=== PATIENT | male | born 1975 | race African-American/Black ===

== ENCOUNTER 2019-01-18 12:21 | Inpatient (IN) | payer OTHER ==
[2019-01-18 15:01] VITALS: BMI 27.7
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
[2019-01-18] MEDS ORDERED: hydrOXYzine PAMOATE 25 MG CAPSULE (FP) PO PRN (16:56)
[2019-01-18] MEDS ORDERED: ACETAMINOPHEN 325 MG TABLET (FP) PO PRN (16:56)
[2019-01-18] MEDS ORDERED: MENTHOL/PHENOL 1 EACH UD MM PRN (16:56)
[2019-01-18] MEDS ORDERED: IBUPROFEN 400 MG TABLET (FP) PO PRN (16:56)
[2019-01-18] MEDS ORDERED: P-EPHED 60MG/TRIPROLIDI 2.5MG TABLET PO PRN (16:56)
[2019-01-18] MEDS ORDERED: guaiFENesin 200 MG/10 ML 10 ML UNIT-DOSE CUPS PO PRN (16:56)
[2019-01-18] MEDS ORDERED: MAG HYDROX/AL HYDROX/SIMETH 30 ML UNIT-DOSE CUP PO PRN (16:56)
[2019-01-18] MEDS ORDERED: METHADONE HCL 10 MG TABLET PO ONE (17:37)
[2019-01-18] MEDS ORDERED: METHADONE 80 MG, METHADONE 20 MG PO ONE (19:00)
[2019-01-18] MEDS ORDERED: METHADONE HCL 10 MG TABLET ONE (19:17)
[2019-01-18] MEDS ORDERED: METHADONE HCL 40 MG DISPERSABLE TABLET ONE (19:17)
[2019-01-18] MEDS ORDERED: MELATONIN 5 MG TABLETS PO PRN (22:00)
[2019-01-18] MEDS: THIAMINE HCL 100 MG TABLET (FP) PO SCH (22:01)
[2019-01-19] MEDS ORDERED: METHADONE HCL 10 MG TABLET ONE (04:08)
[2019-01-19] MEDS ORDERED: METHADONE HCL 40 MG DISPERSABLE TABLET ONE (04:08)
[2019-01-19] MEDS ORDERED: METHADONE HCL 40 MG DISPERSABLE TABLET PO SCH (06:00)
[2019-01-19] MEDS: METHADONE 160 MG, METHADONE 10 MG PO SCH (06:36)
[2019-01-19 10:29] LABS: EPI CELLS 2.8 /HPF (0-5/HPF); HYALINE CASTS 14 /lpf (0-8); PH,URINE 5.5 (5.0-8.0); URINE APPEARANCE CLEAR; URINE BACTERIA 9.6 /hpf (NEGATIVE); URINE BILIRUBIN NEGATIVE (NEGATIVE); URINE COLOR YELLOW; URINE GLUCOSE (UA) NEGATIVE (NEGATIVE); URINE KETONE NEGATIVE (NEGATIVE); URINE LEUK ESTERASE TRACE (NEGATIVE); URINE NITRITE NEGATIVE (NEGATIVE); URINE PROTEIN NEGATIVE (NEGATIVE); URINE RBC 1 /hpf (0-4); URINE UROBILINOGEN 0.2 mg/dL (0.2-1.0); URINE WBC 5 /hpf (0-5)
[2019-01-19] MEDS: PRENATAL VITAMINS W/ FOLIC ACID TABLET (FP) PO SCH (10:39)
[2019-01-19 14:56] LABS: HEMATOCRIT 38.1 % (35.4-49); HEMOGLOBIN 12.6 GM/dL (11.7-16.9); MCH 31.9 pg (25.7-33.7); MCHC 33.1 g/dl (32.0-35.9); MEAN CELL VOLUME 96.5 fl (80-96); MEAN PLT VOLUME 9.1 fl (7.5-11.1); PLATELET COUNT 194 K/MM3 (134-434); RBC 3.95 M/mm3 (4.00-5.60); RDW 14.8 % (11.9-15.9); WHITE BLOOD COUNT 3.4 K/mm3 (4.0-10.0)
[2019-01-19 15:17] LABS: ALBUMIN 4.2 g/dl (3.4-5.0); BILIRUBIN,TOTAL 0.6 mg/dL (0.2-1); BLOOD UREA NITROGEN 7.5 mg/dL (7-18); CALCIUM 9.3 mg/dL (8.5-10.1); CREATININE 1.1 mg/dL (0.55-1.3); POTASSIUM 4.2 mmol/L (3.5-5.1); TOT PROT 7.1 g/dl (6.4-8.2)
[2019-01-19] MEDS: THIAMINE HCL 100 MG TABLET (FP) PO SCH (23:15)
[2019-01-20] MEDS ORDERED: METHADONE HCL 10 MG TABLET ONE (03:36)
[2019-01-20] MEDS ORDERED: METHADONE HCL 40 MG DISPERSABLE TABLET ONE (03:37)
[2019-01-20] MEDS: METHADONE 160 MG, METHADONE 10 MG PO SCH (06:06)
[2019-01-20] MEDS ORDERED: PT OWN MED DRAWER 7, Y5N ONE ×2 (08:43→11:50)
[2019-01-20] MEDS: PRENATAL VITAMINS W/ FOLIC ACID TABLET (FP) PO SCH (10:02)
[2019-01-20] MEDS: AMINO ACIDS/PROTEIN HYDROLYS 30 ML LIQUID.PKT PO SCH (11:00)
[2019-01-20] MEDS: THIAMINE HCL 100 MG TABLET (FP) PO SCH (22:48)
[2019-01-21] MEDS ORDERED: METHADONE HCL 10 MG TABLET ONE (03:01)
[2019-01-21] MEDS ORDERED: METHADONE HCL 40 MG DISPERSABLE TABLET ONE (03:01)
[2019-01-21] MEDS: METHADONE 160 MG, METHADONE 10 MG PO SCH (06:03)
[2019-01-21] MEDS: PRENATAL VITAMINS W/ FOLIC ACID TABLET (FP) PO SCH (10:45)
[2019-01-21] MEDS: AMINO ACIDS/PROTEIN HYDROLYS 30 ML LIQUID.PKT PO SCH (10:45)
[2019-01-21] MEDS: THIAMINE HCL 100 MG TABLET (FP) PO SCH (23:12)
[2019-01-22] MEDS ORDERED: METHADONE HCL 10 MG TABLET ONE (04:15)
[2019-01-22] MEDS ORDERED: METHADONE HCL 40 MG DISPERSABLE TABLET ONE (04:15)
[2019-01-22] MEDS: METHADONE 160 MG, METHADONE 10 MG PO SCH (07:47)
[2019-01-22] MEDS: PRENATAL VITAMINS W/ FOLIC ACID TABLET (FP) PO SCH (09:11)
[2019-01-22] MEDS: AMINO ACIDS/PROTEIN HYDROLYS 30 ML LIQUID.PKT PO SCH (09:48)
[2019-01-22] MEDS: THIAMINE HCL 100 MG TABLET (FP) PO SCH (22:55)
[2019-01-23] MEDS ORDERED: METHADONE HCL 40 MG DISPERSABLE TABLET ONE (05:38)
[2019-01-23] MEDS ORDERED: METHADONE HCL 10 MG TABLET ONE (05:38)
[2019-01-23] MEDS: METHADONE 160 MG, METHADONE 10 MG PO SCH (06:06)
[2019-01-23] MEDS: PRENATAL VITAMINS W/ FOLIC ACID TABLET (FP) PO SCH (10:06)
[2019-01-23] MEDS: AMINO ACIDS/PROTEIN HYDROLYS 30 ML LIQUID.PKT PO SCH (10:07)
[2019-01-23] MEDS: THIAMINE HCL 100 MG TABLET (FP) PO SCH (21:53)
[2019-01-24] MEDS: METHADONE 160 MG, METHADONE 10 MG PO SCH (06:19)
[2019-01-24] MEDS ORDERED: METHADONE HCL 40 MG DISPERSABLE TABLET ONE (06:19)
[2019-01-24] MEDS ORDERED: METHADONE HCL 10 MG TABLET ONE (06:19)
[2019-01-24] MEDS ORDERED: LIDOCAINE VISCOUS 2% ORAL/TOP 20 ML UNIT-DOSE CUP MM PRN (10:01)
[2019-01-24] MEDS ORDERED: PT OWN MED DRAWER 7, Y5N ONE (10:32)
[2019-01-24] MEDS: PRENATAL VITAMINS W/ FOLIC ACID TABLET (FP) PO SCH (10:35)
[2019-01-24] MEDS: AMINO ACIDS/PROTEIN HYDROLYS 30 ML LIQUID.PKT PO SCH (10:36)
--- NOTE | 2019-01-24 13:03 | PN ---
[facility] Progress Note Note: PATIENT SEEN FOR C/O TOOTH PAIN. PATIENT STATES HE HAS BEEN NEEDING ROOT CANAL FOR SOME TIME. Laboratory Tests 01/19/19 01/19/19 01/19/19 09:00 09:10 09:10 WBC 3.4 L RBC 3.95 L Hgb 12.6 Hct 38.1 MCV 96.5 H MCH 31.9 MCHC 33.1 RDW 14.8 Plt Count 194 MPV 9.1 Sodium 141 Potassium 4.2 Chloride 105 Carbon Dioxide 30 Anion Gap 6 L BUN 7.5 Creatinine 1.1 Est GFR (CKD-EPI)AfAm 96.13 Est GFR (CKD-EPI)NonAf 82.94 Random Glucose 89 Calcium 9.3 Total Bilirubin 0.6 AST 164 H ALT 117 H Alkaline Phosphatase 83 Total Protein 7.1 Albumin 4.2 Urine Color Yellow Urine Appearance Clear Urine pH 5.5 Ur Specific [place] 1.022 Urine Protein Negative Urine Glucose (UA) Negative Urine Ketones Negative Urine Blood Negative Urine Nitrite Negative Urine Bilirubin Negative Urine Urobilinogen 0.2 Ur Leukocyte Esterase Trace Urine WBC (Auto) 5 Urine RBC (Auto) 1 Urine Casts (Auto) 14 U Epithel Cells (Auto) 2.8 Urine Bacteria (Auto) 9.6 RPR Titer 01/19/19 09:10 WBC RBC Hgb Hct MCV MCH MCHC RDW Plt Count MPV Sodium Potassium Chloride Carbon Dioxide Anion Gap BUN Creatinine Est GFR (CKD-EPI)AfAm Est GFR (CKD-EPI)NonAf Random Glucose Calcium Total Bilirubin AST ALT Alkaline Phosphatase Total Protein Albumin Urine Color Urine Appearance Urine pH Ur Specific [place] Urine Protein Urine Glucose (UA) Urine Ketones Urine Blood Urine Nitrite Urine Bilirubin Urine Urobilinogen Ur Leukocyte Esterase Urine WBC (Auto) Urine RBC (Auto) Urine Casts (Auto) U Epithel Cells (Auto) Urine Bacteria (Auto) RPR Titer Nonreactive PE: ALERT AND ORIENTED X 3 SKIN WARM AND DRY ORAL [place]UCOSA PINK AND MOIST + TOOTH DECAY, RIGHT UPPER MOLAR PARTIALLY FALLEN OFF, EXPOSED NERVE NECK SUPPLE, NO JVD A/P: TOOTHACHE LABS APPRECIATED-ELEVATED LFTS START VISCOUS LIDOCAINE INCREASE IBU TO 800MG TID PRN ENCOURAGE ORAL FLUIDS REPEAT LABS IN AM
[2019-01-24] MEDS: THIAMINE HCL 100 MG TABLET (FP) PO SCH (22:01)
[2019-01-25] MEDS ORDERED: METHADONE HCL 10 MG TABLET ONE (04:16)
[2019-01-25] MEDS ORDERED: METHADONE HCL 40 MG DISPERSABLE TABLET ONE (04:16)
[2019-01-25] MEDS: METHADONE 160 MG, METHADONE 10 MG PO SCH (06:04)
[2019-01-25] MEDS: PRENATAL VITAMINS W/ FOLIC ACID TABLET (FP) PO SCH (10:53)
[2019-01-25 13:06] LABS: ALBUMIN 3.9 g/dl (3.4-5.0); BILIRUBIN,TOTAL 0.2 mg/dL (0.2-1); BLOOD UREA NITROGEN 5.1 mg/dL (7-18); CREATININE 1.1 mg/dL (0.55-1.3); POTASSIUM 4.4 mmol/L (3.5-5.1)
[2019-01-25] MEDS: THIAMINE HCL 100 MG TABLET (FP) PO SCH (21:53)
[2019-01-26] MEDS ORDERED: METHADONE HCL 10 MG TABLET ONE (05:15)
[2019-01-26] MEDS ORDERED: METHADONE HCL 40 MG DISPERSABLE TABLET ONE (05:15)
[2019-01-26] MEDS: METHADONE 160 MG, METHADONE 10 MG PO SCH (06:47)
[2019-01-26] MEDS: PRENATAL VITAMINS W/ FOLIC ACID TABLET (FP) PO SCH (10:52)
[2019-01-26] MEDS: MAGNESIUM HYDROX 2400MG/30ML ORAL SUSPENSION 30 ML CUP PO PRN (11:58)
[2019-01-26] MEDS: THIAMINE HCL 100 MG TABLET (FP) PO SCH (22:11)
[2019-01-27] MEDS ORDERED: METHADONE HCL 10 MG TABLET ONE (06:29)
[2019-01-27] MEDS ORDERED: METHADONE HCL 40 MG DISPERSABLE TABLET ONE (06:30)
[2019-01-27] MEDS: METHADONE 160 MG, METHADONE 10 MG PO SCH (06:30)
[2019-01-27] MEDS: PRENATAL VITAMINS W/ FOLIC ACID TABLET (FP) PO SCH (10:16)
[2019-01-27] MEDS: MAGNESIUM HYDROX 2400MG/30ML ORAL SUSPENSION 30 ML CUP PO PRN (10:17)
[2019-01-27] MEDS: THIAMINE HCL 100 MG TABLET (FP) PO SCH (22:00)
[2019-01-28] MEDS ORDERED: METHADONE HCL 10 MG TABLET ONE (05:57)
[2019-01-28] MEDS ORDERED: METHADONE HCL 40 MG DISPERSABLE TABLET ONE (05:57)
[2019-01-28] MEDS: METHADONE 160 MG, METHADONE 10 MG PO SCH (06:06)
--- NOTE | 2019-01-28 06:33 | CONSULT ---
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 Refer to addiction counselor's summary for further information Medical History: Significant for bronchial asthma, chronic back pain. Patient is on methadone 170 mg/day from [facility] Psychiatric History: Patient is either a poor historian or intentionally providing false information. He reports having a psychiatric history but cannot provide any evidence based information to that effect except by naming a few medications including Seroquel, Buspar, Zoloft that he claims were prescribed to him in the past. He cannot tell his diagnosis, the reason why these medications were prescribed to him and when he last took any of them. However, he denies previous psychiatric hospitalization or suicidal attempt. At present, denies experiencing psychotic, manic symptoms, S/H ideations. However, reports feeling depressed, anxious and sleeping poorly Physical/Sexual Abuse/Trauma History: Denies history of emotional, physical or sexual abuse as well as DV relationship.No service Mental Status Exam - Mental Status Exam Alert and Oriented to: Time, Place, Person Cognitive Function: Fair Patient Appearance: Well Groomed Mood: Depressed, Anxious Affect: Appropriate Patient Behavior: Cooperative Speech Pattern: Clear Voice Loudness: Normal Thought Process: Intact, Goal Oriented Hallucinations: Denies Suicidal Ideation: Denies Homicidal Ideation: Denies Insight/Judgement: Fair Sleep: Poorly Appetite: Poor Muscle strength/Tone: Normal Gait/Station: Normal Psychiatric Findings - Problem List ([place] 1, 2,3) (1) Substance induced mood disorder Current Visit: Yes Status: Acute (2) Substance-induced sleep disorder Current Visit: Yes Status: Acute (3) Alcohol dependence Current Visit: Yes Status: Acute (4) Cannabis dependence Current Visit: Yes Status: Acute (5) Opioid dependence on agonist therapy Current Visit: Yes Status: Chronic (6) Bronchial asthma Current Visit: Yes Status: Chronic (7) Chronic back pain Current Visit: Yes Status: Chronic - Initial Treatment Plan Initial Treatment Plan: 1) Start Trazadone 100 mg po HS. 2) Continue inpatient rehabilitation
[2019-01-28] MEDS: PRENATAL VITAMINS W/ FOLIC ACID TABLET (FP) PO SCH (11:39)
[2019-01-28] MEDS: MAGNESIUM CITRATE 300 ML BOTTLE PO PRN (11:59)
[2019-01-28] MEDS: THIAMINE HCL 100 MG TABLET (FP) PO SCH (21:51)
[2019-01-28] MEDS: traZODone HCL 100 MG TABLET (FP) PO SCH (21:51)
[2019-01-29] MEDS ORDERED: METHADONE HCL 40 MG DISPERSABLE TABLET ONE (04:02)
[2019-01-29] MEDS ORDERED: METHADONE HCL 10 MG TABLET ONE (04:02)
[2019-01-29] MEDS: METHADONE 160 MG, METHADONE 10 MG PO SCH (06:22)
[2019-01-29] MEDS: PRENATAL VITAMINS W/ FOLIC ACID TABLET (FP) PO SCH (10:15)
[2019-01-29] MEDS: MAGNESIUM HYDROX 2400MG/30ML ORAL SUSPENSION 30 ML CUP PO PRN (10:19)
[2019-01-29] MEDS: THIAMINE HCL 100 MG TABLET (FP) PO SCH (21:10)
[2019-01-29] MEDS: traZODone HCL 100 MG TABLET (FP) PO SCH (21:10)
[2019-01-29] MEDS: IBUPROFEN 400 MG TABLET (FP) PO PRN (21:11)
[2019-01-30] MEDS ORDERED: METHADONE HCL 40 MG DISPERSABLE TABLET ONE (03:19)
[2019-01-30] MEDS ORDERED: METHADONE HCL 10 MG TABLET ONE (03:19)
[2019-01-30] MEDS: METHADONE 160 MG, METHADONE 10 MG PO SCH (06:47)
[2019-01-30] MEDS: PRENATAL VITAMINS W/ FOLIC ACID TABLET (FP) PO SCH (09:01)
[2019-01-30] MEDS: MAGNESIUM CITRATE 300 ML BOTTLE PO PRN (09:02)
[2019-01-30] MEDS: IBUPROFEN 400 MG TABLET (FP) PO PRN (20:37)
[2019-01-30] MEDS: traZODone HCL 100 MG TABLET (FP) PO SCH (21:41)
[2019-01-30] MEDS: THIAMINE HCL 100 MG TABLET (FP) PO SCH (21:41)
[2019-01-31] MEDS ORDERED: METHADONE HCL 10 MG TABLET ONE (02:43)
[2019-01-31] MEDS ORDERED: METHADONE HCL 40 MG DISPERSABLE TABLET ONE (02:43)
[2019-01-31] MEDS: IBUPROFEN 400 MG TABLET (FP) PO PRN ×3 (06:15→21:13)
[2019-01-31] MEDS: METHADONE 160 MG, METHADONE 10 MG PO SCH (06:15)
[2019-01-31] MEDS: PRENATAL VITAMINS W/ FOLIC ACID TABLET (FP) PO SCH (10:56)
--- NOTE | 2019-01-31 14:42 | PN ---
[facility] Progress Note Note: Patient seen for c/o ongoing toothache and constipation with little relief from MOM/Citroma. Patient denies abdominal pain, N and V, fever and diarrhea. Vital Signs Temperature 97.6 F 01/31/19 07:43 Pulse Rate 78 01/31/19 07:43 Respiratory Rate 20 01/31/19 07:43 Blood Pressure 117/71 01/31/19 07:43 O2 Sat by Pulse Oximetry (%) Laboratory Tests 01/19/19 01/19/19 01/19/19 09:00 09:10 09:10 WBC 3.4 L RBC 3.95 L Hgb 12.6 Hct 38.1 MCV 96.5 H MCH 31.9 MCHC 33.1 RDW 14.8 Plt Count 194 MPV 9.1 Sodium 141 Potassium 4.2 Chloride 105 Carbon Dioxide 30 Anion Gap 6 L BUN 7.5 Creatinine 1.1 Est GFR (CKD-EPI)AfAm 96.13 Est GFR (CKD-EPI)NonAf 82.94 Random Glucose 89 Calcium 9.3 Total Bilirubin 0.6 AST 164 H ALT 117 H Alkaline Phosphatase 83 Total Protein 7.1 Albumin 4.2 Urine Color Yellow Urine Appearance Clear Urine pH 5.5 Ur Specific [place] 1.022 Urine Protein Negative Urine Glucose (UA) Negative Urine Ketones Negative Urine Blood Negative Urine Nitrite Negative Urine Bilirubin Negative Urine Urobilinogen 0.2 Ur Leukocyte Esterase Trace Urine WBC (Auto) 5 Urine RBC (Auto) 1 Urine Casts (Auto) 14 U Epithel Cells (Auto) 2.8 Urine Bacteria (Auto) 9.6 RPR Titer 01/19/19 01/25/19 09:10 09:30 WBC RBC Hgb Hct MCV MCH MCHC RDW Plt Count MPV Sodium 142 Potassium 4.4 Chloride 104 Carbon Dioxide 32 Anion Gap 5 L BUN 5.1 L Creatinine 1.1 Est GFR (CKD-EPI)AfAm 96.13 Est GFR (CKD-EPI)NonAf 82.94 Random Glucose 86 Calcium 9.0 Total Bilirubin 0.2 AST 63 H ALT 80 H Alkaline Phosphatase 83 Total Protein 7.0 Albumin 3.9 Urine Color Urine Appearance Urine pH Ur Specific [place] Urine Protein Urine Glucose (UA) Urine Ketones Urine Blood Urine Nitrite Urine Bilirubin Urine Urobilinogen Ur Leukocyte Esterase Urine WBC (Auto) Urine RBC (Auto) Urine Casts (Auto) U Epithel Cells (Auto) Urine Bacteria (Auto) RPR Titer Nonreactive PE: alert and oriented x 3 skin warm and dry +perrla, eoms intact bl neck supple no jvd oral mucosa with tooth decay, missing teeth and partially exposed nerve gi soft, nt, nd, + hypoactive bs ext full rom, amb ad yael A/P: constipation: encourage oral fluids start lactulose 20gm daily prn monitor clinically toothache dental consult continue oragel prn increase motrin to 800mg every 6 hrs prn
[2019-01-31] MEDS: LACTULOSE 20 GM/30 ML UDC (FOR ORAL USE ONLY) PO PRN (15:27)
[2019-01-31] MEDS: THIAMINE HCL 100 MG TABLET (FP) PO SCH (21:11)
[2019-01-31] MEDS: traZODone HCL 100 MG TABLET (FP) PO SCH (21:11)
[2019-02-01] MEDS ORDERED: METHADONE HCL 40 MG DISPERSABLE TABLET ONE (04:39)
[2019-02-01] MEDS ORDERED: METHADONE HCL 10 MG TABLET ONE (04:39)
[2019-02-01] MEDS: METHADONE 160 MG, METHADONE 10 MG PO SCH (06:01)
[2019-02-01] MEDS: IBUPROFEN 400 MG TABLET (FP) PO PRN ×3 (06:03→17:41)
[2019-02-01] MEDS: PRENATAL VITAMINS W/ FOLIC ACID TABLET (FP) PO SCH (10:20)
[2019-02-01] MEDS: LACTULOSE 20 GM/30 ML UDC (FOR ORAL USE ONLY) PO PRN (11:19)
--- NOTE | 2019-02-01 11:53 | PN ---
[facility] Progress Note Note: Pt c/o toothache- seen yesterday. Reminded pt that he has motrin for pain, oragel for pain, and dental consult pending- d/w nurse to make appointment for pt
[2019-02-01] MEDS: traZODone HCL 100 MG TABLET (FP) PO SCH (21:50)
[2019-02-01] MEDS: THIAMINE HCL 100 MG TABLET (FP) PO SCH (21:50)
[2019-02-02] MEDS: IBUPROFEN 400 MG TABLET (FP) PO PRN ×4 (02:01→21:49)
[2019-02-02] MEDS ORDERED: METHADONE HCL 10 MG TABLET ONE (04:35)
[2019-02-02] MEDS ORDERED: METHADONE HCL 40 MG DISPERSABLE TABLET ONE (04:35)
[2019-02-02] MEDS: METHADONE 160 MG, METHADONE 10 MG PO SCH (05:59)
[2019-02-02] MEDS: PRENATAL VITAMINS W/ FOLIC ACID TABLET (FP) PO SCH (09:05)
[2019-02-02] MEDS: traZODone HCL 100 MG TABLET (FP) PO SCH (21:49)
[2019-02-02] MEDS: THIAMINE HCL 100 MG TABLET (FP) PO SCH (21:49)
[2019-02-03] MEDS ORDERED: METHADONE HCL 40 MG DISPERSABLE TABLET ONE (06:15)
[2019-02-03] MEDS ORDERED: METHADONE HCL 10 MG TABLET ONE (06:15)
[2019-02-03] MEDS: METHADONE 160 MG, METHADONE 10 MG PO SCH (06:16)
[2019-02-03] MEDS: IBUPROFEN 400 MG TABLET (FP) PO PRN ×3 (06:16→21:16)
[2019-02-03] MEDS: PRENATAL VITAMINS W/ FOLIC ACID TABLET (FP) PO SCH (10:33)
--- NOTE | 2019-02-03 15:58 | PN ---
[facility] Progress Note Note: Pt returned from [facility] in [facility], [address] [place] [address](ph: [phone]) for c/o tooth ache. Pt was given d/c progress note paper with Rx recommendation by Dentist, Dr. Sewell for Clindamycin 150 mg po Q6H #28 tabs total till finish and Ibuprofen 800 mg po for pain. Pt was given a referral to oral surgery for extraction of upper #1 and #3 wisdom teeth. Hard copy of Dental visit progress note and referral in patient's chart and pt has a copy of referral. Dx:Irreversible Pulpitis. Vital Signs - 24 hr 02/03/19 02/03/19 02/03/19 00:30 03:30 07:15 Temperature 97.2 F L Pulse Rate 71 Respiratory 18 18 18 Rate Blood Pressure 136/82 A/P: Irreversible Pulpitis #3 Cracked tooth Recommendation for extraction of upper wisdom tooth #1 and #3. To start Clindamycin 150 mg po Q6H #28 tabs till finish. Ibuprofen 800 mg po Q6H prn for pain. Pt understood loyd Sewell's instructions which was reiterated to patient when he returned back to the [address] today.
[2019-02-03] MEDS: CLINDAMYCIN HCL 150 MG CAPSULE (FP) PO SCH (19:18)
[2019-02-03] MEDS: traZODone HCL 100 MG TABLET (FP) PO SCH (21:16)
[2019-02-03] MEDS: THIAMINE HCL 100 MG TABLET (FP) PO SCH (21:16)
[2019-02-04] MEDS: CLINDAMYCIN HCL 150 MG CAPSULE (FP) PO SCH ×2 (00:08→05:57)
[2019-02-04] MEDS ORDERED: METHADONE HCL 40 MG DISPERSABLE TABLET ONE (05:07)
[2019-02-04] MEDS ORDERED: METHADONE HCL 10 MG TABLET ONE (05:07)
[2019-02-04] MEDS: METHADONE 160 MG, METHADONE 10 MG PO SCH (05:58)
[2019-02-04] MEDS: IBUPROFEN 400 MG TABLET (FP) PO PRN (06:08)
[2019-02-04 08:07] VITALS: BP 149/85; PULSE 77; TEMP 94.2
--- NOTE | 2019-02-04 10:07 | PN ---
[facility] Progress Note Note: Rehab discharge note: Patient admitted to Rehab on 01/18/19 for ETOH and Marijuana dependence. Patient also on MMP at [facility]. During admission, patient was treated for severe toothache. Patient was seen by dentist who referred him to Oral surgeon and started Clindamycin antibiotics. Patient requested early discharge to follow up with Oral surgeon as he continues to have oral pain. Aftercare arrange for patient to follow up with [facility] on 02/05/19. Patient is medically stable and denies SI/HI. Patient encouraged to continue group meetings to prevent relapse. Vital Signs Temperature 94.2 F L 02/04/19 06:30 Pulse Rate 77 02/04/19 06:30 Respiratory Rate 18 02/04/19 06:30 Blood Pressure 149/85 02/04/19 06:30 O2 Sat by Pulse Oximetry (%) Laboratory Tests 01/19/19 01/19/19 01/19/19 09:00 09:10 09:10 WBC 3.4 L RBC 3.95 L Hgb 12.6 Hct 38.1 MCV 96.5 H MCH 31.9 MCHC 33.1 RDW 14.8 Plt Count 194 MPV 9.1 Sodium 141 Potassium 4.2 Chloride 105 Carbon Dioxide 30 Anion Gap 6 L BUN 7.5 Creatinine 1.1 Est GFR (CKD-EPI)AfAm 96.13 Est GFR (CKD-EPI)NonAf 82.94 Random Glucose 89 Calcium 9.3 Total Bilirubin 0.6 AST 164 H ALT 117 H Alkaline Phosphatase 83 Total Protein 7.1 Albumin 4.2 Urine Color Yellow Urine Appearance Clear Urine pH 5.5 Ur Specific [place] 1.022 Urine Protein Negative Urine Glucose (UA) Negative Urine Ketones Negative Urine Blood Negative Urine Nitrite Negative Urine Bilirubin Negative Urine Urobilinogen 0.2 Ur Leukocyte Esterase Trace Urine WBC (Auto) 5 Urine RBC (Auto) 1 Urine Casts (Auto) 14 U Epithel Cells (Auto) 2.8 Urine Bacteria (Auto) 9.6 RPR Titer 01/19/19 01/25/19 09:10 09:30 WBC RBC Hgb Hct MCV MCH MCHC RDW Plt Count MPV Sodium 142 Potassium 4.4 Chloride 104 Carbon Dioxide 32 Anion Gap 5 L BUN 5.1 L Creatinine 1.1 Est GFR (CKD-EPI)AfAm 96.13 Est GFR (CKD-EPI)NonAf 82.94 Random Glucose 86 Calcium 9.0 Total Bilirubin 0.2 AST 63 H ALT 80 H Alkaline Phosphatase 83 Total Protein 7.0 Albumin 3.9 Urine Color Urine Appearance Urine pH Ur Specific [place] Urine Protein Urine Glucose (UA) Urine Ketones Urine Blood Urine Nitrite Urine Bilirubin Urine Urobilinogen Ur Leukocyte Esterase Urine WBC (Auto) Urine RBC (Auto) Urine Casts (Auto) U Epithel Cells (Auto) Urine Bacteria (Auto) RPR Titer Nonreactive PE: alert and oriented x 3 skin warm and dry +perrla, eoms intact bl neck supple, no jvd oral mucosa pink, moist, + tooth decay and missing teeth ext full rom, no tremors amb ad yael A/P: Tooth pain/Infection Etoh dependence Cocaine dependence MMTP Patient cleared for d/c Ambulatory Orders Clindamycin [Cleocin -] 150 mg PO Q6H #110 capsule 02/04/19 Ibuprofen 800 mg PO TID #30 tablet 02/04/19
[2019-02-04] MEDS: PRENATAL VITAMINS W/ FOLIC ACID TABLET (FP) PO SCH (10:20)
== END 2019-02-04 10:35 | disposition home or self-care (01) | DRG 772 ==
LOC: YASAS 12:21 → Y3W 17:16
PROVIDERS: ADMIT Neuromusculoskeletal Medicine & OMM; ATTEND Neuromusculoskeletal Medicine & OMM
PROC: HZ42ZZZ Group Counseling for Substance Abuse Treatment, Cognitive-Behavioral (ICD-10-PCS; principal; 2019-01-18)
DX: F11.20 Opioid dependence, uncomplicated (principal); F12.20 Cannabis dependence, uncomplicated; F19.24 Other psychoactive substance dependence with psychoactive substance-induced mood disorder; F19.282 Other psychoactive substance dependence with psychoactive substance-induced sleep disorder; J45.909 Unspecified asthma, uncomplicated; K08.89 Other specified disorders of teeth and supporting structures; K04.7 Periapical abscess without sinus; K04.02 Irreversible pulpitis; K59.00 Constipation, unspecified; M54.9 Dorsalgia, unspecified; G89.29 Other chronic pain; R94.5 Abnormal results of liver function studies; Z88.0 Allergy status to penicillin
CPT/HCPCS: 36415; 71046-TC-FY; 80053; 81003; 85027; 86593

== ENCOUNTER 2022-06-24 11:51 | Inpatient (IN) | payer OTHER ==
[2022-06-24 13:41] VITALS: BMI 27.1
[2022-06-24] MEDS ORDERED: IBUPROFEN 600 MG TABLET (FP) PO PRN (15:03)
[2022-06-24] MEDS ORDERED: POLYETHYLENE GLYCOL (HEALTHYLAX) 3350 17 GM PACKET PO PRN (15:03)
[2022-06-24] MEDS ORDERED: BISMUTH SUBSALICYLATE 524 MG/30 ML PO PRN (15:03)
[2022-06-24] MEDS ORDERED: NICOTINE 10 MG CARTRIDGE (INHALER) IH PRN (15:03)
[2022-06-24] MEDS ORDERED: ONDANSETRON *ODT* 4 MG TABLET SL PRN (15:03)
[2022-06-24] MEDS ORDERED: MAGNESIUM HYDROX 2400MG/30ML ORAL SUSPENSION 30 ML CUP PO PRN (15:03)
[2022-06-24] MEDS ORDERED: NALOXONE HCL (KLOXXADO) 8 MG SPRAY NS PRN (15:03)
[2022-06-24] MEDS ORDERED: LOPERAMIDE HCL 2 MG CAPSULE PO PRN (15:03)
[2022-06-24] MEDS ORDERED: ACETAMINOPHEN 325 MG TABLET (FP) PO PRN ×2 (15:03)
[2022-06-24] MEDS ORDERED: DICYCLOMINE HCL 10 MG CAPSULE PO PRN (15:03)
[2022-06-24] MEDS ORDERED: LORazepam 1 MG TABLET PO PRN (15:03)
[2022-06-24] MEDS ORDERED: BENZOCAINE/MENTHOL (CHLORASEPTIC ) LOZENGE MM PRN (15:03)
[2022-06-24] MEDS ORDERED: IBUPROFEN 400 MG TABLET (FP) PO PRN (15:03)
[2022-06-24] MEDS ORDERED: hydrOXYzine PAMOATE 25 MG CAPSULE (FP) PO PRN (15:03)
[2022-06-24] MEDS: PRENATAL VITAMINS W/ FOLIC ACID TABLET (FP) PO SCH (17:44)
[2022-06-24] MEDS: LORazepam 2 MG TABLET PO SCH ×2 (17:44→22:40)
[2022-06-24] MEDS: METHOCARBAMOL 500 MG TABLET PO PRN (17:46)
[2022-06-24] MEDS: MAG HYDROX/AL HYDROX/SIMETH 30 ML UNIT-DOSE CUP PO PRN (17:51)
[2022-06-24] MEDS: FAMOTIDINE 20 MG TABLET PO SCH (22:40)
[2022-06-24] MEDS: THIAMINE HCL 100 MG TABLET (FP) PO SCH (22:40)
[2022-06-24] MEDS: MELATONIN 5 MG TABLETS PO SCH (22:40)
[2022-06-25] MEDS: METHOCARBAMOL 500 MG TABLET PO PRN (04:11)
[2022-06-25] MEDS: MAG HYDROX/AL HYDROX/SIMETH 30 ML UNIT-DOSE CUP PO PRN ×2 (04:13→19:23)
[2022-06-25] MEDS: LORazepam 2 MG TABLET PO SCH ×3 (05:17→22:20)
[2022-06-25] MEDS: methaDONE HCL 40 MG DISPERSABLE TABLET PO SCH (07:04)
[2022-06-25] MEDS: BACITRACIN 0.9 GM PACKET TP SCH ×2 (10:22→22:21)
[2022-06-25] MEDS: PRENATAL VITAMINS W/ FOLIC ACID TABLET (FP) PO SCH (10:22)
[2022-06-25] MEDS: FAMOTIDINE 20 MG TABLET PO SCH ×2 (10:22→22:18)
[2022-06-25] MEDS: MELATONIN 5 MG TABLETS PO SCH (22:18)
[2022-06-25] MEDS: THIAMINE HCL 100 MG TABLET (FP) PO SCH (22:22)
[2022-06-26] MEDS: LORazepam 2 MG TABLET PO SCH (00:10)
[2022-06-26] MEDS: methaDONE HCL 40 MG DISPERSABLE TABLET PO SCH (05:11)
[2022-06-26] MEDS: LORazepam 1 MG TABLET PO SCH ×4 (06:06→22:54)
[2022-06-26 10:45] LABS: HEMATOCRIT 29.1 % (35.4-49); HEMOGLOBIN 9.1 GM/dL (11.7-16.9); MCH 24.9 pg (25.7-33.7); MCHC 31.2 g/dl (32.0-35.9); MEAN CELL VOLUME 79.7 fl (80-96); PLATELET COUNT 232 10^3/uL (134-434); RBC 3.65 M/mm3 (4.00-5.60); RDW 19.5 % (11.9-15.9); WHITE BLOOD COUNT 3.3 K/mm3 (4.0-10.0)
[2022-06-26] MEDS: PRENATAL VITAMINS W/ FOLIC ACID TABLET (FP) PO SCH (10:48)
[2022-06-26] MEDS: FAMOTIDINE 20 MG TABLET PO SCH ×2 (10:48→22:52)
[2022-06-26] MEDS: BACITRACIN 0.9 GM PACKET TP SCH ×2 (10:48→22:56)
[2022-06-26 11:03] LABS: BLOOD UREA NITROGEN 14.4 mg/dL (7-18)
[2022-06-26 11:06] LABS: ALBUMIN 3.6 g/dl (3.4-5.0)
[2022-06-26 11:08] LABS: BILIRUBIN,TOTAL 0.2 mg/dL (0.2-1); TOT PROT 6.4 g/dl (6.4-8.2)
[2022-06-26 11:09] LABS: CREATININE 1.1 mg/dL (0.55-1.3)
[2022-06-26] MEDS ORDERED: LACTULOSE 20 GM/30 ML UDC (FOR ORAL USE ONLY) PO PRN (14:37)
[2022-06-26] MEDS: THIAMINE HCL 100 MG TABLET (FP) PO SCH (22:51)
[2022-06-26] MEDS: MELATONIN 5 MG TABLETS PO SCH (22:52)
[2022-06-26] MEDS: METHOCARBAMOL 500 MG TABLET PO PRN (22:55)
[2022-06-27] MEDS ORDERED: LORazepam 0.5 MG TABLET PO PRN
[2022-06-27] MEDS: LORazepam 0.5 MG TABLET PO SCH ×4 (05:19→22:29)
[2022-06-27] MEDS: methaDONE HCL 40 MG DISPERSABLE TABLET PO SCH (05:19)
[2022-06-27] MEDS: BACITRACIN 0.9 GM PACKET TP SCH ×2 (10:12→22:29)
[2022-06-27] MEDS: FAMOTIDINE 20 MG TABLET PO SCH ×2 (10:13→22:29)
[2022-06-27] MEDS: PRENATAL VITAMINS W/ FOLIC ACID TABLET (FP) PO SCH (10:13)
[2022-06-27] MEDS: MAG HYDROX/AL HYDROX/SIMETH 30 ML UNIT-DOSE CUP PO PRN (17:36)
[2022-06-27] MEDS: MELATONIN 5 MG TABLETS PO SCH (22:29)
[2022-06-27] MEDS: THIAMINE HCL 100 MG TABLET (FP) PO SCH (22:29)
[2022-06-28] MEDS ORDERED: LORazepam 0.5 MG TABLET PO ONE (05:00)
[2022-06-28] MEDS: methaDONE HCL 40 MG DISPERSABLE TABLET PO SCH (06:10)
[2022-06-28] MEDS: PRENATAL VITAMINS W/ FOLIC ACID TABLET (FP) PO SCH (10:33)
[2022-06-28] MEDS: FAMOTIDINE 20 MG TABLET PO SCH (10:33)
[2022-06-28] MEDS: BACITRACIN 0.9 GM PACKET TP SCH (10:33)
[2022-06-28 13:24] VITALS: BP 141/74; PULSE 84; RESP 18; TEMP 97.7
== END 2022-06-28 14:20 | disposition other institution (70) | DRG 773 ==
LOC: YASAS 11:51 → Y3N 15:11
PROVIDERS: ADMIT Allergy & Immunology; ATTEND Surgery
PROC: HZ2ZZZZ Detoxification Services for Substance Abuse Treatment (ICD-10-PCS; principal; 2022-06-24)
DX: F10.230 Alcohol dependence with withdrawal, uncomplicated (principal); F11.20 Opioid dependence, uncomplicated; F14.20 Cocaine dependence, uncomplicated; F12.20 Cannabis dependence, uncomplicated; F17.210 Nicotine dependence, cigarettes, uncomplicated; F19.282 Other psychoactive substance dependence with psychoactive substance-induced sleep disorder; F19.24 Other psychoactive substance dependence with psychoactive substance-induced mood disorder; F20.9 Schizophrenia, unspecified; D17.1 Benign lipomatous neoplasm of skin and subcutaneous tissue of trunk; M54.50 Low back pain, unspecified; R79.89 Other specified abnormal findings of blood chemistry; Z87.19 Personal history of other diseases of the digestive system; Z86.59 Personal history of other mental and behavioral disorders; Z28.310 Unvaccinated for COVID-19; Z28.9 Immunization not carried out for unspecified reason; Z91.014 Allergy to mammalian meats; Z88.0 Allergy status to penicillin; Z91.018 Allergy to other foods
CPT/HCPCS: 36415; 80053; 82140; 85027; 86780; 93005; 93010; C9803-CS; U0003; U0005

== ENCOUNTER 2022-11-24 12:17 | Inpatient (IN) | payer OTHER ==
[2022-11-24 13:16] VITALS: BMI 32.1
[2022-11-24] MEDS ORDERED: NALOXONE HCL 0.4 MG/ML VIAL IM PRN (14:11)
[2022-11-24] MEDS ORDERED: NICOTINE 10 MG CARTRIDGE (INHALER) IH PRN (14:11)
[2022-11-24] MEDS ORDERED: AMMONIUM LACTATE 12% LOTION 225 GM BOTTLE TP PRN (14:11)
[2022-11-24] MEDS ORDERED: POLYETHYLENE GLYCOL (HEALTHYLAX) 3350 17 GM PACKET PO PRN (14:11)
[2022-11-24] MEDS ORDERED: ACETAMINOPHEN 325 MG TABLET (FP) PO PRN (14:11)
[2022-11-24] MEDS ORDERED: IBUPROFEN 600 MG TABLET (FP) PO PRN (14:11)
[2022-11-24] MEDS ORDERED: COLLOIDAL OATMEAL 1 BAR EACH TP PRN (14:11)
[2022-11-24] MEDS ORDERED: NICOTINE POLACRILEX 2 MG GUM BUC PRN (14:11)
[2022-11-24] MEDS ORDERED: chlordiazePOXIDE HCL 25 MG CAPSULE PO ONE (14:11)
[2022-11-24] MEDS ORDERED: LOPERAMIDE HCL 2 MG CAPSULE PO PRN (14:11)
[2022-11-24] MEDS ORDERED: BENZONATATE 200 MG CAPSULE PO PRN (14:11)
[2022-11-24] MEDS ORDERED: ONDANSETRON *ODT* 4 MG TABLET SL PRN (14:11)
[2022-11-24] MEDS ORDERED: NALOXONE HCL (KLOXXADO) 8 MG SPRAY NS PRN (14:11)
[2022-11-24] MEDS ORDERED: IBUPROFEN 400 MG TABLET (FP) PO PRN (14:11)
[2022-11-24] MEDS ORDERED: guaiFENesin 600 MG TABLET.ER (FP) PO PRN (14:11)
[2022-11-24] MEDS ORDERED: BENZOCAINE/MENTHOL (CHLORASEPTIC ) LOZENGE MM PRN (14:11)
[2022-11-24] MEDS ORDERED: DICYCLOMINE HCL 10 MG CAPSULE PO PRN (14:11)
[2022-11-24] MEDS ORDERED: BISMUTH SUBSALICYLATE 262 MG/15 ML BTL PO PRN (14:11)
[2022-11-24] MEDS ORDERED: MAGNESIUM HYDROX 2400MG/30ML ORAL SUSPENSION 30 ML CUP PO PRN (14:11)
[2022-11-24] MEDS ORDERED: MAG HYDROX/AL HYDROX/SIMETH 30 ML UNIT-DOSE CUP PO PRN (14:11)
[2022-11-24] MEDS: METHOCARBAMOL 500 MG TABLET PO PRN (15:17)
[2022-11-24] MEDS ORDERED: methaDONE HCL 10 MG TABLET PO SCH (16:15)
[2022-11-24 16:59] LABS: HEMATOCRIT 36.1 % (35.4-49); HEMOGLOBIN 11.6 GM/dL (11.7-16.9); MCH 26.6 pg (25.7-33.7); MCHC 32.3 g/dl (32.0-35.9); MEAN CELL VOLUME 82.3 fl (80-96); MEAN PLT VOLUME 8.7 fl (7.5-11.1); PLATELET COUNT 185 10^3/uL (134-434); RBC 4.38 M/mm3 (4.00-5.60); RDW 16.5 % (11.9-15.9)
[2022-11-24 17:24] LABS: POTASSIUM 4.1 mmol/L (3.5-5.1)
[2022-11-24 17:27] LABS: ALBUMIN 3.9 g/dl (3.4-5.0); BLOOD UREA NITROGEN 15.4 mg/dL (7-18)
[2022-11-24 17:30] LABS: CREATININE 1.1 mg/dL (0.55-1.3)
[2022-11-24 17:31] LABS: BILIRUBIN,TOTAL 0.3 mg/dL (0.2-1); TOT PROT 7.3 g/dl (6.4-8.2)
[2022-11-24] MEDS: chlordiazePOXIDE HCL 25 MG CAPSULE PO SCH ×2 (18:18→22:03)
[2022-11-24] MEDS ORDERED: MELATONIN 5 MG TABLETS PO SCH (22:00)
[2022-11-24] MEDS: FAMOTIDINE 20 MG TABLET PO SCH (22:03)
[2022-11-24] MEDS: THIAMINE HCL 100 MG TABLET (FP) PO SCH (22:03)
[2022-11-25] MEDS: chlordiazePOXIDE HCL 25 MG CAPSULE PO SCH ×4 (05:16→22:12)
[2022-11-25] MEDS: FAMOTIDINE 20 MG TABLET PO SCH ×2 (10:34→22:11)
[2022-11-25] MEDS: PRENATAL VITAMINS W/ FOLIC ACID TABLET (FP) PO SCH (10:34)
[2022-11-25] MEDS: QUEtiapine FUMARATE 100 MG TABLET (FP) PO SCH ×2 (10:34→22:11)
[2022-11-25] MEDS: SUCRALFATE 1 GM TABLET (FP) PO SCH ×2 (11:34→16:39)
[2022-11-25] MEDS ORDERED: traZODone HCL 100 MG TABLET (FP) PO SCH (22:00)
[2022-11-25] MEDS: THIAMINE HCL 100 MG TABLET (FP) PO SCH (22:11)
[2022-11-26] MEDS: chlordiazePOXIDE HCL 25 MG CAPSULE PO SCH ×4 (05:25→22:06)
[2022-11-26] MEDS: SUCRALFATE 1 GM TABLET (FP) PO SCH ×3 (06:14→16:30)
[2022-11-26] MEDS: PRENATAL VITAMINS W/ FOLIC ACID TABLET (FP) PO SCH (10:23)
[2022-11-26] MEDS: QUEtiapine FUMARATE 100 MG TABLET (FP) PO SCH ×2 (10:23→22:06)
[2022-11-26] MEDS: FAMOTIDINE 20 MG TABLET PO SCH ×2 (10:23→22:06)
[2022-11-26] MEDS: THIAMINE HCL 100 MG TABLET (FP) PO SCH (22:06)
[2022-11-26] MEDS: traZODone HCL 100 MG TABLET (FP) PO SCH (22:06)
[2022-11-27] MEDS: chlordiazePOXIDE HCL 10 MG CAPSULE PO SCH ×4 (05:56→22:15)
[2022-11-27] MEDS: methaDONE HCL 40 MG DISPERSABLE TABLET PO SCH (05:58)
[2022-11-27] MEDS: SUCRALFATE 1 GM TABLET (FP) PO SCH ×3 (06:52→17:02)
[2022-11-27] MEDS: FAMOTIDINE 20 MG TABLET PO SCH ×2 (10:16→22:14)
[2022-11-27] MEDS: PRENATAL VITAMINS W/ FOLIC ACID TABLET (FP) PO SCH (10:16)
[2022-11-27] MEDS: QUEtiapine FUMARATE 100 MG TABLET (FP) PO SCH ×2 (10:20→22:14)
[2022-11-27] MEDS: THIAMINE HCL 100 MG TABLET (FP) PO SCH (22:14)
[2022-11-27] MEDS: traZODone HCL 100 MG TABLET (FP) PO SCH (22:15)
[2022-11-28] MEDS: methaDONE HCL 40 MG DISPERSABLE TABLET PO SCH (05:16)
[2022-11-28] MEDS: chlordiazePOXIDE HCL 10 MG CAPSULE PO SCH ×2 (05:16→17:17)
[2022-11-28] MEDS: SUCRALFATE 1 GM TABLET (FP) PO SCH ×3 (06:02→17:14)
[2022-11-28] MEDS: FAMOTIDINE 20 MG TABLET PO SCH ×2 (10:27→22:42)
[2022-11-28] MEDS: PRENATAL VITAMINS W/ FOLIC ACID TABLET (FP) PO SCH (10:27)
[2022-11-28] MEDS: QUEtiapine FUMARATE 100 MG TABLET (FP) PO SCH ×2 (10:27→22:42)
[2022-11-28] MEDS: METHOCARBAMOL 500 MG TABLET PO PRN (10:28)
[2022-11-28] MEDS: traZODone HCL 100 MG TABLET (FP) PO SCH (22:42)
[2022-11-28] MEDS: THIAMINE HCL 100 MG TABLET (FP) PO SCH (22:42)
[2022-11-29] MEDS ORDERED: chlordiazePOXIDE HCL 10 MG CAPSULE PO ONE (05:00)
[2022-11-29] MEDS: methaDONE HCL 40 MG DISPERSABLE TABLET PO SCH (05:32)
[2022-11-29 06:19] VITALS: TEMP 97.3
[2022-11-29] MEDS: SUCRALFATE 1 GM TABLET (FP) PO SCH ×2 (06:36→10:22)
[2022-11-29 09:49] VITALS: BP 117/71; PULSE 78; RESP 16
[2022-11-29] MEDS: PRENATAL VITAMINS W/ FOLIC ACID TABLET (FP) PO SCH (10:21)
[2022-11-29] MEDS: QUEtiapine FUMARATE 100 MG TABLET (FP) PO SCH (10:22)
[2022-11-29] MEDS: FAMOTIDINE 20 MG TABLET PO SCH (10:22)
== END 2022-11-29 12:00 | disposition other institution (70) | DRG 773 ==
LOC: YASAS 12:17 → Y6N 14:29
PROVIDERS: ADMIT Allergy & Immunology; ATTEND Surgery
PROC: HZ2ZZZZ Detoxification Services for Substance Abuse Treatment (ICD-10-PCS; principal; 2022-11-24)
DX: F10.230 Alcohol dependence with withdrawal, uncomplicated (principal); F11.20 Opioid dependence, uncomplicated; F12.20 Cannabis dependence, uncomplicated; F17.210 Nicotine dependence, cigarettes, uncomplicated; F19.282 Other psychoactive substance dependence with psychoactive substance-induced sleep disorder; F19.280 Other psychoactive substance dependence with psychoactive substance-induced anxiety disorder; F19.24 Other psychoactive substance dependence with psychoactive substance-induced mood disorder; F25.9 Schizoaffective disorder, unspecified; M54.50 Low back pain, unspecified; G89.29 Other chronic pain; Z62.810 Personal history of physical and sexual abuse in childhood; Z87.11 Personal history of peptic ulcer disease; Z99.89 Dependence on other enabling machines and devices; Z28.310 Unvaccinated for COVID-19; Z28.9 Immunization not carried out for unspecified reason; Z88.0 Allergy status to penicillin; Z91.018 Allergy to other foods
CPT/HCPCS: 36415; 80053; 82140; 85027; 86780; 87635

== ENCOUNTER 2022-12-25 15:35 | Inpatient (IN) | payer OTHER ==
[2022-12-25 16:45] VITALS: BMI 29.7
[2022-12-25] MEDS ORDERED: ACETAMINOPHEN 325 MG TABLET (FP) PO PRN (17:27)
[2022-12-25] MEDS ORDERED: NALOXONE HCL 0.4 MG/ML VIAL IM PRN (17:27)
[2022-12-25] MEDS ORDERED: NICOTINE 10 MG CARTRIDGE (INHALER) IH PRN (17:27)
[2022-12-25] MEDS ORDERED: IBUPROFEN 600 MG TABLET (FP) PO PRN (17:27)
[2022-12-25] MEDS ORDERED: DICYCLOMINE HCL 10 MG CAPSULE PO PRN (17:27)
[2022-12-25] MEDS ORDERED: MAGNESIUM HYDROX 2400MG/30ML ORAL SUSPENSION 30 ML CUP PO PRN (17:27)
[2022-12-25] MEDS ORDERED: IBUPROFEN 400 MG TABLET (FP) PO PRN (17:27)
[2022-12-25] MEDS ORDERED: BENZONATATE 200 MG CAPSULE PO PRN (17:27)
[2022-12-25] MEDS ORDERED: MAG HYDROX/AL HYDROX/SIMETH 30 ML UNIT-DOSE CUP PO PRN (17:27)
[2022-12-25] MEDS ORDERED: guaiFENesin 600 MG TABLET.ER (FP) PO PRN (17:27)
[2022-12-25] MEDS ORDERED: NALOXONE HCL (KLOXXADO) 8 MG SPRAY NS PRN (17:27)
[2022-12-25] MEDS ORDERED: POLYETHYLENE GLYCOL (HEALTHYLAX) 3350 17 GM PACKET PO PRN (17:27)
[2022-12-25] MEDS ORDERED: ONDANSETRON *ODT* 4 MG TABLET SL PRN (17:27)
[2022-12-25] MEDS ORDERED: METHOCARBAMOL 500 MG TABLET PO PRN (17:27)
[2022-12-25] MEDS ORDERED: LOPERAMIDE HCL 2 MG CAPSULE PO PRN (17:27)
[2022-12-25] MEDS ORDERED: BISMUTH SUBSALICYLATE 524 MG/30 ML PO PRN (17:27)
[2022-12-25] MEDS ORDERED: BENZOCAINE/MENTHOL (CHLORASEPTIC ) LOZENGE MM PRN (17:27)
[2022-12-25] MEDS ORDERED: LORazepam 1 MG TABLET PO PRN (17:27)
[2022-12-25] MEDS ORDERED: LORazepam 1 MG TABLET ONE (17:49)
[2022-12-25] MEDS ORDERED: ALBUTEROL SO4 HFA INHALER IH PRN (18:57)
[2022-12-25] MEDS: LORazepam 2 MG TABLET PO SCH (22:44)
[2022-12-25] MEDS: MELATONIN 5 MG TABLETS PO SCH (22:46)
[2022-12-25] MEDS: THIAMINE HCL 100 MG TABLET (FP) PO SCH (22:46)
[2022-12-26] MEDS: LORazepam 2 MG TABLET PO SCH ×4 (05:10→22:15)
[2022-12-26] MEDS: SUCRALFATE 1 GM TABLET (FP) PO SCH ×2 (06:28→17:16)
[2022-12-26 09:48] LABS: HEMATOCRIT 35.5 % (35.4-49); HEMOGLOBIN 11.4 GM/dL (11.7-16.9); MCH 27.2 pg (25.7-33.7); MCHC 32.1 g/dl (32.0-35.9); MEAN CELL VOLUME 84.7 fl (80-96); MEAN PLT VOLUME 8.3 fl (7.5-11.1); PLATELET COUNT 214 10^3/uL (134-434); RBC 4.19 M/mm3 (4.00-5.60); RDW 15.9 % (11.9-15.9)
[2022-12-26 09:51] LABS: POTASSIUM 3.9 mmol/L (3.5-5.1)
[2022-12-26 10:07] LABS: ALBUMIN 3.6 g/dl (3.4-5.0); CALCIUM 9.4 mg/dL (8.5-10.1)
[2022-12-26] MEDS: methaDONE HCL 40 MG DISPERSABLE TABLET PO SCH (10:07)
[2022-12-26] MEDS: AZITHROMYCIN 250 MG TABLET PO SCH (10:07)
[2022-12-26] MEDS: PRENATAL VITAMINS W/ FOLIC ACID TABLET (FP) PO SCH (10:07)
[2022-12-26] MEDS: predniSONE 20 MG TABLET (UD) PO SCH (10:07)
[2022-12-26 10:10] LABS: CREATININE 1.3 mg/dL (0.55-1.3)
[2022-12-26 10:12] LABS: BILIRUBIN,TOTAL 0.5 mg/dL (0.2-1); TOT PROT 6.6 g/dl (6.4-8.2)
[2022-12-26] MEDS: MELATONIN 5 MG TABLETS PO SCH (22:14)
[2022-12-26] MEDS: THIAMINE HCL 100 MG TABLET (FP) PO SCH (22:15)
[2022-12-26] MEDS: traZODone HCL 50 MG TABLET (FP) PO SCH (22:15)
[2022-12-26] MEDS: QUEtiapine FUMARATE 100 MG TABLET (FP) PO SCH (22:15)
[2022-12-27] MEDS: LORazepam 1 MG TABLET PO SCH ×4 (05:13→22:06)
[2022-12-27] MEDS: methaDONE HCL 40 MG DISPERSABLE TABLET PO SCH (05:13)
[2022-12-27] MEDS: SUCRALFATE 1 GM TABLET (FP) PO SCH ×2 (06:04→15:43)
[2022-12-27] MEDS: PRENATAL VITAMINS W/ FOLIC ACID TABLET (FP) PO SCH (10:05)
[2022-12-27] MEDS: predniSONE 20 MG TABLET (UD) PO SCH (10:06)
[2022-12-27] MEDS: AZITHROMYCIN 250 MG TABLET PO SCH (11:22)
[2022-12-27] MEDS: MELATONIN 5 MG TABLETS PO SCH (22:06)
[2022-12-27] MEDS: traZODone HCL 50 MG TABLET (FP) PO SCH (22:06)
[2022-12-27] MEDS: QUEtiapine FUMARATE 100 MG TABLET (FP) PO SCH (22:06)
[2022-12-27] MEDS: THIAMINE HCL 100 MG TABLET (FP) PO SCH (22:06)
[2022-12-27] MEDS: FAMOTIDINE 20 MG TABLET PO PRN (22:07)
[2022-12-28] MEDS ORDERED: LORazepam 0.5 MG TABLET PO PRN
[2022-12-28] MEDS: methaDONE HCL 40 MG DISPERSABLE TABLET PO SCH (05:34)
[2022-12-28] MEDS: LORazepam 0.5 MG TABLET PO SCH ×4 (05:35→22:30)
[2022-12-28] MEDS: SUCRALFATE 1 GM TABLET (FP) PO SCH ×2 (06:39→17:30)
[2022-12-28] MEDS: PRENATAL VITAMINS W/ FOLIC ACID TABLET (FP) PO SCH (10:09)
[2022-12-28] MEDS: AZITHROMYCIN 250 MG TABLET PO SCH (10:09)
[2022-12-28] MEDS: predniSONE 20 MG TABLET (UD) PO SCH (10:10)
[2022-12-28] MEDS: hydrOXYzine PAMOATE 25 MG CAPSULE (FP) PO PRN (17:38)
[2022-12-28] MEDS: FAMOTIDINE 20 MG TABLET PO PRN (22:30)
[2022-12-28] MEDS: MELATONIN 5 MG TABLETS PO SCH (22:30)
[2022-12-28] MEDS: QUEtiapine FUMARATE 100 MG TABLET (FP) PO SCH (22:30)
[2022-12-28] MEDS: THIAMINE HCL 100 MG TABLET (FP) PO SCH (22:30)
[2022-12-28] MEDS: traZODone HCL 50 MG TABLET (FP) PO SCH (22:30)
[2022-12-29] MEDS ORDERED: LORazepam 0.5 MG TABLET PO ONE (05:00)
[2022-12-29] MEDS: methaDONE HCL 40 MG DISPERSABLE TABLET PO SCH (05:41)
[2022-12-29] MEDS: SUCRALFATE 1 GM TABLET (FP) PO SCH (06:26)
[2022-12-29 09:56] VITALS: BP 116/80; PULSE 83; RESP 18; TEMP 97.1
[2022-12-29] MEDS: predniSONE 20 MG TABLET (UD) PO SCH (10:25)
[2022-12-29] MEDS: AZITHROMYCIN 250 MG TABLET PO SCH (10:25)
[2022-12-29] MEDS: PRENATAL VITAMINS W/ FOLIC ACID TABLET (FP) PO SCH (10:26)
[2022-12-29] MEDS: hydrOXYzine PAMOATE 25 MG CAPSULE (FP) PO PRN (10:27)
== END 2022-12-29 12:17 | disposition other institution (70) | DRG 773 ==
LOC: YASAS 15:35 → Y3N 18:00
PROVIDERS: ADMIT Allergy & Immunology; ATTEND Surgery
PROC: HZ2ZZZZ Detoxification Services for Substance Abuse Treatment (ICD-10-PCS; principal; 2022-12-25)
DX: F10.230 Alcohol dependence with withdrawal, uncomplicated (principal); F11.20 Opioid dependence, uncomplicated; F14.20 Cocaine dependence, uncomplicated; F12.20 Cannabis dependence, uncomplicated; F17.210 Nicotine dependence, cigarettes, uncomplicated; F25.1 Schizoaffective disorder, depressive type; J45.41 Moderate persistent asthma with (acute) exacerbation; G47.00 Insomnia, unspecified; M54.50 Low back pain, unspecified; G89.29 Other chronic pain; Z62.810 Personal history of physical and sexual abuse in childhood; Z87.11 Personal history of peptic ulcer disease; Z87.01 Personal history of pneumonia (recurrent); Z88.0 Allergy status to penicillin; Z91.013 Allergy to seafood; Z91.018 Allergy to other foods; Z28.310 Unvaccinated for COVID-19; Z28.9 Immunization not carried out for unspecified reason
CPT/HCPCS: 36415; 80053; 85027; 86780; 87635; 93005; 93010

== ENCOUNTER 2024-10-18 13:47 | Inpatient (IN) | payer OTHER ==
[~2024-10-18 13:47] MED LIST: ACETAMINOPHEN 325 MG TABLET (FP) PO PRN; ALBUTEROL SO4 HFA INHALER IH PRN; BENZOCAINE/MENTHOL (CHLORASEPTIC ) LOZENGE MM PRN; BENZONATATE 200 MG CAPSULE PO PRN; IBUPROFEN 400 MG TABLET (FP) PO PRN; IBUPROFEN 600 MG TABLET (FP) PO PRN; LOPERAMIDE HCL 2 MG CAPSULE PO PRN; MAG HYDROX/AL HYDROX/SIMETH 30 ML UNIT-DOSE CUP PO PRN; MAGNESIUM HYDROX 2400MG/30ML ORAL SUSPENSION 30 ML CUP PO PRN; NALOXONE (NARCAN) HCL 4 MG/0.1 ML SPRAY NS PRN; NICOTINE POLACRILEX 2 MG GUM BUC PRN; NICOTINE POLACRILEX 2 MG LOZENGE BC PRN; guaiFENesin 600 MG TABLET.ER (FP) PO PRN; hydrOXYzine PAMOATE 25 MG CAPSULE (FP) PO PRN
[2024-10-18] MEDS: FAMOTIDINE 20 MG TABLET PO PRN (17:02)
[2024-10-18] MEDS: MELATONIN 5 MG TABLETS PO SCH (21:20)
[2024-10-18] MEDS: QUEtiapine FUMARATE 200 MG TABLET PO SCH (21:20)
[2024-10-18] MEDS: THIAMINE 100 MG TABLET PO SCH (21:20)
[2024-10-18] MEDS: MIRTAZAPINE 30 MG TABLET PO SCH (21:20)
[2024-10-18] MEDS ORDERED: QUEtiapine FUMARATE 50 MG TABLET PO SCH (22:00)
[2024-10-19] MEDS ORDERED: methaDONE HCL 10 MG TABLET PO SCH (06:00)
[2024-10-19] MEDS ORDERED: methaDONE 40 MG, methaDONE 30 MG PO SCH ×2 (06:00)
[2024-10-19] MEDS: methaDONE 40 MG, methaDONE 30 MG PO SCH (07:25)
[2024-10-19] MEDS: QUEtiapine FUMARATE 50 MG TABLET PO SCH (10:14)
[2024-10-19] MEDS: PANTOPRAZOLE 40 MG TABLET PO SCH (10:14)
[2024-10-19] MEDS: PRENATAL VITAMINS W/ FOLIC ACID TABLET (FP) PO SCH (10:14)
[2024-10-19] MEDS: POLYETHYLENE GLYCOL (HEALTHYLAX) 3350 17 GM PACKET PO PRN (10:18)
[2024-10-19] MEDS: SUCRALFATE 1 GM TABLET (FP) PO PRN (21:10)
[2024-10-20] MEDS: methaDONE HCL 40 MG DISPERSABLE TABLET PO SCH (06:07)
[2024-10-20] MEDS: BISACODYL 5 MG TABLET.DR (FP) PO PRN (10:44)
[2024-10-20] MEDS: DOCUSATE SODIUM 100 MG CAPSULE (FP) PO PRN (10:44)
[2024-10-22 06:43] VITALS: TEMP 97.3
[2024-10-23] MEDS: LACTULOSE 20 GM/30 ML UDC (FOR ORAL USE ONLY) PO ONE (09:07)
[2024-10-24 05:40] VITALS: BP 122/71; PULSE 94; RESP 17
== END 2024-10-24 06:50 | disposition left against medical advice (07) | DRG 770 ==
LOC: YASAS 13:47 → Y3W 13:56
PROVIDERS: ADMIT Psychiatry & Neurology Pain Medicine; ATTEND Psychiatry & Neurology Pain Medicine
PROC: HZ42ZZZ Group Counseling for Substance Abuse Treatment, Cognitive-Behavioral (ICD-10-PCS; principal; 2024-10-18)
DX: F10.20 Alcohol dependence, uncomplicated (principal); F11.20 Opioid dependence, uncomplicated; F14.20 Cocaine dependence, uncomplicated; F12.20 Cannabis dependence, uncomplicated; F17.210 Nicotine dependence, cigarettes, uncomplicated; F20.9 Schizophrenia, unspecified; F31.9 Bipolar disorder, unspecified; F41.8 Other specified anxiety disorders; G47.00 Insomnia, unspecified; J45.40 Moderate persistent asthma, uncomplicated; M54.50 Low back pain, unspecified; G89.29 Other chronic pain; Z87.11 Personal history of peptic ulcer disease